=== PATIENT | male | born 1970 | race Caucasian/White ===

== ENCOUNTER 2018-05-13 18:18 | Emergency (ER) | payer OTHER ==
[~2018-05-13] VITALS: Ht 177.8 cm; Wt 99.8 kg
[2018-05-13 18:19] VITALS: Ht 177.8 cm; Wt 99.8 kg
[2018-05-13 20:55] VITALS: BP 145/95
== END 2018-05-13 20:55 | disposition home or self-care (01) ==
LOC: ED 18:18
DX: S62.521A Displaced fracture of distal phalanx of right thumb, initial encounter for closed fracture (principal); S61.011A Laceration without foreign body of right thumb without damage to nail, initial encounter; W20.8XXA Other cause of strike by thrown, projected or falling object, initial encounter; Y93.89 Activity, other specified; Y92.89 Other specified places as the place of occurrence of the external cause; Y99.8 Other external cause status
CPT/HCPCS: 82962; J0690; J2001; J2270; J2405; Q0092